=== PATIENT | male | born 1965 | race Caucasian/White ===

== ENCOUNTER 2018-02-12 21:00 | Inpatient (IN) | payer OTHER ==
[~2018-02-12] VITALS: Ht 182.9 cm; Wt 94.6 kg
[2018-02-12 21:04] VITALS: BP 170/95; PULSE 92; RESP 20; TEMP 98.1; O2SAT 98
[2018-02-12] MEDS ORDERED: SODIUM CHLORIDE 0.9% FLUSH 10 ML FLUSH IVF PRN (21:15)
[2018-02-12] MEDS ORDERED: oxyCODONE/ACETAMINOPHEN 5 MG/325 MG TAB PO ONE (21:30)
[2018-02-12 22:19] LABS: AUTOMATED NEUTROPHIL # 9.6 TH/MM3 (1.8-7.7); BASOPHIL # 0.1 TH/MM3 (0-0.2); BASOPHIL % 0.4 % (0.0-2.0); EOSINOPHIL # 0.1 TH/MM3 (0-0.4); EOSINOPHIL % 0.6 % (0.0-4.0); HEMATOCRIT 44.6 % (39.0-51.0); HEMOGLOBIN 15.4 GM/DL (13.0-17.0); LYMPH % 13.5 % (9.0-44.0); LYMPHOCYTE # 1.6 TH/MM3 (1.0-4.8); MEAN CELL VOLUME 90.2 FL (80.0-100.0); MEAN CORPUSCULAR HEMOGLOBIN 31.1 PG (27.0-34.0); MEAN CORPUSCULAR HGB CONC 34.4 % (32.0-36.0); MEAN PLATELET VOLUME 7.1 FL (7.0-11.0); MONO % 6.2 % (0.0-8.0); MONOCYTE # 0.7 TH/MM3 (0-0.9); NEUT % 79.3 % (16.0-70.0); PLATELET COUNT 282 TH/MM3 (150-450); RED BLOOD COUNT 4.95 MIL/MM3 (4.50-5.90); RED CELL DISTRIBUTION WIDTH 12.8 % (11.6-17.2); WHITE BLOOD COUNT 12.1 TH/MM3 (4.0-11.0)
[2018-02-12] MEDS ORDERED: ceFAZolin 2 GM PREMIX 50 ML ONE (22:30)
[2018-02-12] MEDS ORDERED: ONDANSETRON HCL 4 MG/2 ML VIAL IV PUSH ONE (22:30)
[2018-02-12] MEDS ORDERED: LIDOCAINE 1%/EPINEPHrine 1:100,000 SOLN 30 ML VIAL ONE (22:33)
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
[2018-02-12 22:54] LABS: ALKALINE PHOSPHATASE 67 U/L (45-117); TOTAL BILIRUBIN ADULT 0.5 MG/DL (0.2-1.0); TOTAL PROTEIN 7.3 GM/DL (6.4-8.2)
[2018-02-12 22:59] LABS: ALBUMIN 3.9 GM/DL (3.4-5.0); ALT (GPT) 27 U/L (12-78); AST (GOT) 31 U/L (15-37); BICARBONATE 25.3 MEQ/L (21.0-32.0); BLOOD UREA NITROGEN 27 MG/DL (7-18); CALCIUM 8.5 MG/DL (8.5-10.1); CHLORIDE 103 MEQ/L (98-107); CREATININE 1.26 MG/DL (0.60-1.30); GLOMERULAR FILTRATION RATE 61 ML/MIN (>89); GLUCOSE,RANDOM 110 MG/DL (74-106); SODIUM (NA) 141 MEQ/L (136-145)
[2018-02-12] MEDS ORDERED: GENTAMICIN INJ 80 MG in SODIUM CHLORIDE 0.9% INJ 100 ML IV ONE (23:00)
[2018-02-12] MEDS ORDERED: LIDOCAINE 1%/EPINEPHrine 1:100,000 SOLN 20 ML VIAL INFIL ONE (23:15)
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
[2018-02-12] MEDS ORDERED: SODIUM CHLOR 0.9% 1000 ML INJ 1,000 ML IV ONE (23:45)
[2018-02-13] MEDS ORDERED: oxyCODONE/ACETAMINOPHEN 5 MG/325 MG TAB PO PRN
[2018-02-13 00:10] LABS: BANDS 8 % (0-6); LYMPHOCYTES 10 % (9-44); MONOCYTES 7 % (0-8); POLYS (SEG NEUTROPHILS) 75 % (16-70); TOXIC GRANULATION 1+ (NORMAL)
[2018-02-13] MEDS ORDERED: IOHEXOL 350 MG/ML 10 ML VIAL (for RAD DIAG) IVCONTRAST ONE (00:19)
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
[2018-02-13 01:00] VITALS: BP 134/87; PULSE 94; RESP 18; O2SAT 98
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
[2018-02-13 04:00] VITALS: BP 142/74; PULSE 77; RESP 18; O2SAT 98
[2018-02-13] MEDS: DEXT 5%-NACL 0.45% 1000 ML INJ 1,000 ML IV SCH ×3 (04:21→19:59)
[2018-02-13] MEDS ORDERED: ENALAPRILAT 1.25 MG/ML VIAL IV PUSH PRN (05:45)
[2018-02-13] MEDS ORDERED: oxyCODONE/ACETAMINOPHEN 10 MG/325 MG TAB PO PRN (05:45)
[2018-02-13] MEDS ORDERED: MORPHINE SULFATE 4 MG/ML INJ IV PUSH PRN ×2 (05:45→13:15)
[2018-02-13] MEDS ORDERED: ONDANSETRON HCL 4 MG/2 ML VIAL IV PUSH PRN (05:45)
[2018-02-13] MEDS: FAMOTIDINE 20 MG/2 ML VIAL IV PUSH SCH ×2 (06:27→16:15)
[2018-02-13 07:20] VITALS: BP 143/85; PULSE 83; RESP 17; O2SAT 98
[2018-02-13] MEDS ORDERED: GENTAMICIN 80 MG PREMIX 100 ML IV SCH ×2 (08:00→19:00)
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
[2018-02-13] MEDS: DOCUSATE SODIUM 50 MG/SENNA 8.6 MG TAB PO SCH ×2 (09:00→19:57)
[2018-02-13] MEDS: BACITRACIN TOP OINT 15 GM TUBE TOP SCH ×2 (09:00→19:57)
[2018-02-13] MEDS ORDERED: GENTAMICIN SULFATE 80 MG/2 ML VIAL ONE (09:39)
[2018-02-13] MEDS ORDERED: VANCOMYCIN HCL 1000 MG VIAL ONE (09:39)
[2018-02-13 09:52] LABS: AUTOMATED NEUTROPHIL # 6.6 TH/MM3 (1.8-7.7); BASOPHIL % 0.3 % (0.0-2.0); EOSINOPHIL % 0.1 % (0.0-4.0); HEMATOCRIT 37.8 % (39.0-51.0); HEMOGLOBIN 13.4 GM/DL (13.0-17.0); LYMPH % 9.7 % (9.0-44.0); LYMPHOCYTE # 0.8 TH/MM3 (1.0-4.8); MEAN CORPUSCULAR HGB CONC 35.6 % (32.0-36.0); MONO % 8.4 % (0.0-8.0); MONOCYTE # 0.7 TH/MM3 (0-0.9); NEUT % 81.5 % (16.0-70.0); PLATELET COUNT 251 TH/MM3 (150-450); RED CELL DISTRIBUTION WIDTH 12.8 % (11.6-17.2); WHITE BLOOD COUNT 8.1 TH/MM3 (4.0-11.0)
[2018-02-13] MEDS ORDERED: POVIDONE IODINE 5% (ANTISEPSIS KIT) 4 APPLICATIONS EACH NARE PRN (10:15)
[2018-02-13] MEDS ORDERED: LACTATED RINGER'S 1000 ML IV PRN (10:15)
[2018-02-13] MEDS ORDERED: SODIUM CHLORID 0.9% 500 ML IV PRN (10:15)
[2018-02-13] MEDS ORDERED: METOPROLOL TARTRATE 25 MG TAB PO PRN (10:15)
[2018-02-13] MEDS ORDERED: CHLORHEXIDINE GLUCONATE 2 % 1 PACK (2 CLOTHS) TOPICAL PRN (10:15)
[2018-02-13 10:19] LABS: BICARBONATE 24.8 MEQ/L (21.0-32.0); CALCIUM 8.4 MG/DL (8.5-10.1); CREATININE 1.14 MG/DL (0.60-1.30)
[2018-02-13] MEDS ORDERED: ceFAZolin 2 GM PREMIX 50 ML ONE (10:50)
[2018-02-13] MEDS ORDERED: HYDR-3583 PO (11:39)
--- NOTE | 2018-02-13 11:41 | PD.ORT.PN ---
Subjective Subjective Remarks POD 0 s/p ORIF right distal humerus fx stable in PACU Objective Vitals Vital Signs Date Time Temp Pulse Resp B/P (MAP) Pulse Ox O2 Delivery O2 Flow Rate FiO2 02/13/18 07:20 83 17 143/85 (104) 98 Room Air 02/13/18 06:32 98 Room Air 02/13/18 04:00 77 18 142/74 (96) 98 Room Air 02/13/18 01:00 94 18 134/87 (103) 98 Room Air 02/12/18 21:04 98.1 92 20 170/95 (120) 98 I/O 02/12/18 02/12/18 02/12/18 02/13/18 02/13/18 02/13/18 07:00 15:00 23:00 07:00 15:00 23:00 Intake Total 1152 ml Balance 1152 ml Intake IV Total 1152 ml Result Diagram: 02/13/18 0844 02/13/18 0844 Imaging Last [address] 02/12/182111 Signed Impressions: Service Date/Time: January 23:40 - CONCLUSION: 1. Minimal chronic sinusitis in the inferior aspect of both maxillary antra. 2. Otherwise negative. No acute osseous injury. Phil Hurst MD Head CT 02/12/182111 Signed Impressions: Service Date/Time: January 23:40 - CONCLUSION: 1. Mild chronic sinus disease in the inferior aspect of both maxillary antra. 2. Otherwise negative with no acute intracranial process, trauma or fracture. Phil Hurst MD Chest CT 02/12/182111 Signed Impressions: Service Date/Time: January 23:54 - CONCLUSION: 1. Early emphysematous changes in the apices. 2. Otherwise negative with no acute thoracic trauma. Phil Hurst MD Cervical Spine CT 02/12/182111 Signed Impressions: Service Date/Time: January 23:40 - CONCLUSION: 1. Reversal of the normal lordotic curvature with degenerative disc disease most prominent at C5-6 and C6-7. 2. Minimal grade 1 anterolisthesis of C4 on 5 appears chronic. No acute fracture. Phil Hurst MD Abdomen/Pelvis CT 02/12/182111 Signed Impressions: Service Date/Time: January 23:47 - CONCLUSION: 1. Some facet hypertrophy rightward at C4-5. Osseous structures are otherwise intact. 2. Abdominal and pelvic viscera are all intact with no acute trauma. Phil Hurst MD Objective Remarks RUE: +long arm splint. intact. full sensation to median/ulnar nerve. good extension of wrist and fingers Assessment & Plan Assessment and Plan 1) Right Distal Humerus Fx s/p ORIF - POD 0 -NWB -maintain splint -will need 48 hrs of IV Abx -plan for DC home Friday once IV Abx are completed -f/u with Ortho back in [place] in 2 weeks Tc Galeano/[employer] Specialist PATRICK Feb 13, 2018 11:41
[2018-02-13] MEDS ORDERED: DEXAMETHASONE SOD PHOS 4 MG/ML VIAL IV ONE (12:00)
[2018-02-13] MEDS ORDERED: LIDOCAINE HCL 1% PF 5 ML SYRINGE OTHER ONE (12:00)
[2018-02-13] MEDS ORDERED: ROCURONIUM INJ 50 MG/5 ML SYRINGE IV PUSH ONE (12:00)
[2018-02-13] MEDS ORDERED: PROPOFOL 200 MG/20 ML AMP IV ONE (12:00)
[2018-02-13] MEDS ORDERED: LACTATED RINGER'S 1000 ML INJ 1,000 ML IV ONE (12:00)
[2018-02-13] MEDS ORDERED: ONDANSETRON HCL 4 MG/2 ML VIAL IV ONE (12:00)
--- NOTE | 2018-02-13 13:15 | PD.OP ---
cc: Win Calle MD Operative Report Date of Surgery: Feb 13, 2018 Preoperative Diagnosis: Comminuted open right humerus shaft fracture and intra-articular supracondylar fracture Postoperative Diagnosis: Procedure: Irrigation and debridement of open right humerus fracture, open reduction and fixation right humeral shaft fracture, open reduction internal fixation intra- articular right supracondylar humerus fracture, proximal ulna osteotomy Anesthesia: Gen. Surgeon: Win Calle Anthropometrist(s): LIAM Roche PA-C The surgical procedure was assisted by my physician household assistant. My P.A. presence was necessary throughout this case for the manipulation and positioning of the surgical extremity. My P.A. was assisting me throughout the duration of this procedure. The skill set of a physician household assistant was medically necessary to complete this procedure. During the surgical case the assembler surgical garment was working at the back table and the physician household assistant was directly assisting me. Operation and Findings: Patient was seen and evaluated preoperatively. Treatment options were discussed regarding right open distal humerus fracture including surgical and nonsurgical treatments. After detailed discussion of risk and benefits of procedure patient wishes to proceed with surgery. Risks of surgery include bleeding, infection, nonunion, malunion, painful hardware, loss of motion of shoulder and elbow, weakness and numbness of arm, ulnar nerve injury as well as medical competitions including blood clots stroke and . Patient was brought to operating room and placed on the OR table. GETA was administered by anesthesiologist. Patient was positioned in lateral decubitus position. Extremities were well-padded. Axillary roll was placed. Operative arm and shoulder were prepped with alcohol followed by Hibiclens and draped usual sterile fashion. Timeout procedure was performed. IV antibiotics were given prior to incision. A standard posterior approach was utilized. A long incision was made along the posterior aspect of the humerus and elbow. The traumatic laceration was incorporated into the incision Subcutaneous tissues was dissected with Bovie. The lateral border of the triceps was elevated off of the distal humerus. Fracture site was visualized. Next, the ulnar nerve was identified and protected throughout the procedure. The nerve was intact. The fracture was identified along the medial distal humerus. Soft tissue was removed from the fracture site. Fracture site was cleaned with curettes. At this point attention was turned towards debridement of the fracture. There was a small amount of visible contamination. A Rongour was used to debride the tip of the humerus. Curettes and rongeurs were used to debride bone. A small area of triceps muscle was excised. All visible contamination was excised. The wound was now thoroughly irrigated with 6 L of sterile saline. Next attention was turned towards open reduction and fixation of the humeral shaft. The humeral shaft fragments were carefully manipulated. The medial fragment was reduced first. Fracture keyed in anatomic alignment. Fracture tenaculum was used to hold reduction. K wires were used to hold provisional fixation. Next the lateral aspect of the humeral shaft was reduced. This fracture also keyed into excellent alignment. 2.7 cortical lag screws were used to compress fracture fragments. Next attention was turned towards the articular surface. Attempt was made to reduce surgical surface with fracture tenaculums. Fracture site was gently manipulated. I was unable to achieve satisfactory reduction. At this point attention was turned to proximal ulna osteotomy. The ulnar nerve was protected. Using an oscillating saw, a proximal ulna osteotomy was created. An osteotome was used to finish the osteotomy. The proximal ulna was now reflected to allow for exposure of the distal humerus articular surface. At this point attention was turned towards open reduction internal fixation of the articular surface. The fracture fragments were manipulated to achieve excellent reduction. At this point the fracture was reduced using fracture tenaculums. Multiplanar fluoroscopy confirmed excellent of fracture. Synthes distal humerus plates were selected. Long medial and lateral plates were selected to use band the supracondylar humerus fracture and the humeral shaft fracture. The medial plate was provisionally held the bone with K wires. 3.5 cortical screws were placed to compress plate to bone. Multiple 2.7 locking screws were placed distally. Care was taken to keep screws from penetrating the articular surface. Multiple screws were placed in each side of the fracture. All screws were predrilled and premeasured for appropriate length. Next the lateral plate was placed along the posterior lateral humerus. Plate was provisionally held to bone with K wires. 3.5 cortical screws were used to compress plate to bone. Additional 2.7 locking screws were placed distally. K wires were removed. Final fluoroscopy revealed excellent alignment of fracture with well-placed hardware. At this point she was turned towards repair of the proximal ulna osteotomy. The osteotomy was reduced. Fracture was compressed using fracture tenaculums. K wires were used to hold provisional fixation. The proximal ulna plate was selected. Plate was provisionally held to bone with K wires. 3.5 cortical screws were used to compress plate to bone. Additional locking screws were placed proximally. All screws were predrilled and premeasured for appropriate length. Fluoroscopy confirmed appropriate position of all hardware. Incision was thoroughly irrigated. Fascia was closed with #1 PDS, subcutaneous tissues closed with 3-0 PDS, and skin was closed with 3-0 nylon and cedric. Sterile dressings were applied. Needle and sponge counts were correct. Patient was placed into a sling, and then transferred to recovery room in stable condition Win Calle MD Feb 13, 2018 13:15
[2018-02-13] MEDS ORDERED: DO NOT ADM ANY ANTICOAGULANT DRUGS PRN (13:37)
[2018-02-13] MEDS ORDERED: MIDAZOLAM HCL 2 MG/2 ML VIAL ONE (13:50)
--- NOTE | 2018-02-13 14:00 | PD.ORT.PN ---
Subjective Subjective Remarks Transferred to PACU in stable condition. Clean dry dressings and sling in place Objective Vitals Vital Signs Date Time Temp Pulse Resp B/P (MAP) Pulse Ox O2 Delivery O2 Flow Rate FiO2 02/13/18 13:41 97.7 81 20 134/75 (94) 100 Nasal Cannula 2 02/13/18 07:20 83 17 143/85 (104) 98 Room Air 02/13/18 06:32 98 Room Air 02/13/18 04:00 77 18 142/74 (96) 98 Room Air 02/13/18 01:00 94 18 134/87 (103) 98 Room Air 02/12/18 21:04 98.1 92 20 170/95 (120) 98 I/O 02/12/18 02/12/18 02/12/18 02/13/18 02/13/18 02/13/18 07:00 15:00 23:00 07:00 15:00 23:00 Intake Total 1152 ml 1000 ml Output Total 200 ml Balance 1152 ml 800 ml Intake IV Total 1152 ml Other 1000 ml Output Estimated Blood Loss 200 ml Result Diagram: 02/13/18 0844 02/13/18 0844 Imaging Last [address] 02/12/182111 Signed Impressions: Service Date/Time: January 23:40 - CONCLUSION: 1. Minimal chronic sinusitis in the inferior aspect of both maxillary antra. 2. Otherwise negative. No acute osseous injury. Phil Hurst MD Head CT 02/12/182111 Signed Impressions: Service Date/Time: January 23:40 - CONCLUSION: 1. Mild chronic sinus disease in the inferior aspect of both maxillary antra. 2. Otherwise negative with no acute intracranial process, trauma or fracture. Phil Hurst MD Chest CT 02/12/182111 Signed Impressions: Service Date/Time: January 23:54 - CONCLUSION: 1. Early emphysematous changes in the apices. 2. Otherwise negative with no acute thoracic trauma. Phil Hurst MD Cervical Spine CT 02/12/182111 Signed Impressions: Service Date/Time: January 23:40 - CONCLUSION: 1. Reversal of the normal lordotic curvature with degenerative disc disease most prominent at C5-6 and C6-7. 2. Minimal grade 1 anterolisthesis of C4 on 5 appears chronic. No acute fracture. Phil Hurst MD Abdomen/Pelvis CT 02/12/182111 Signed Impressions: Service Date/Time: January 23:47 - CONCLUSION: 1. Some facet hypertrophy rightward at C4-5. Osseous structures are otherwise intact. 2. Abdominal and pelvic viscera are all intact with no acute trauma. Phil Hurst MD Objective Remarks Right upper extremity: Clean dry dressings intact. Sling in place. Distally good capillary refills and distal pulses Assessment & Plan Assessment and Plan 1) Right Distal Humerus Fx s/p ORIF - POD 0 -NWB -will need 48 hrs of IV Abx -plan for DC home Friday once IV Abx are completed -f/u with Ortho back in [place] in 2 weeks Thor Caceres Jr. Feb 13, 2018 14:00
[2018-02-13] MEDS ORDERED: *MEPERIDINE 25 MG INJ VIAL PERIprocedural Use ONLY ONE (14:04)
[2018-02-13] MEDS ORDERED: diphenhydrAMINE HCL 25 MG CAP PO PRN (14:30)
--- NOTE | 2018-02-13 14:35 | RADRPT ---
EXAM DATE/TIME: 02/13/2018 12:33 [facility] COMPARISON: FLUOROSCOPY PORTABLE UP TO 1HR, February 13, 2018, 0:00. INDICATIONS : Right elbow/ distal humerus open reduction internal fixation. MEDICAL HISTORY : None. SURGICAL HISTORY : None. ENCOUNTER: Initial ACUITY: 1 day PAIN SCORE: Non-responsive. LOCATION: Right elbow FINDINGS: Intraoperative examination demonstrates plating of the patient's comminuted distal humeral fracture a nd olecranon fracture. The alignment post ORIF is excellent. CONCLUSION: 1. Excellent alignment of the patient's distal humeral fracture and olecranon fracture post plating. Cristobal Miguel MD on February 13, 2018 at 14:32 Board Certified Radiologist. This report was verified electronically.
[2018-02-13] MEDS ORDERED: ceFAZolin 2 GM PREMIX 50 ML IV SCH (15:00)
--- NOTE | 2018-02-13 15:37 | OTSOAPIP ---
TIME SESSION COMPLETED: PM TREATMENT TIME: 0 MINS. ELECTRONIC MEDICAL RECORD REVIEWED. INTERDISCIPLINARY COMMUNICATION: PATIENT WAS NOT AVAILABLE DUE TO HAVING SURGICAL PROCEDURE FOR REPAIR OF RIGHT HUMERUS FRACTURE PLAN: WILL SEE PATIENT NEXT TREATMENT DAY Therapist: TAISHA MAHAJAN/Collin Signature on file
[2018-02-13] MEDS: ACETAMINOPHEN/HYDROcodone 325 MG/10 MG TAB PO PRN ×3 (15:52→23:36)
[2018-02-13] MEDS ORDERED: POTASSIUM CHLORIDE 25 MEQ EFFERVESCENT TAB PO ONE (16:15)
[2018-02-13] MEDS: CALCIUM/VITAMIN D 250 MG/125 U TAB PO SCH (17:02)
[2018-02-13] MEDS: ceFAZolin 2 GM PREMIX 50 ML IV SCH (17:02)
[2018-02-13] MEDS: GENTAMICIN INJ 80 MG in SODIUM CHLORIDE 0.9% INJ 100 ML IV SCH (18:29)
[2018-02-13 20:00] VITALS: BP 128/88; PULSE 91; RESP 18; TEMP 99.6; O2SAT 97
[2018-02-14] VITALS (7 sets, daily range): BP systolic 136–144; BP diastolic 81–93; PULSE 80–92; RESP 16–18; TEMP 97.9–100.7; O2SAT 94–98
[2018-02-14] MEDS: GENTAMICIN INJ 80 MG in SODIUM CHLORIDE 0.9% INJ 100 ML IV SCH ×3 (02:32→18:12)
[2018-02-14] MEDS: ceFAZolin 2 GM PREMIX 50 ML IV SCH (03:09)
[2018-02-14] MEDS: ACETAMINOPHEN/HYDROcodone 325 MG/10 MG TAB PO PRN ×7 (03:10→21:06)
[2018-02-14] MEDS: FAMOTIDINE 20 MG/2 ML VIAL IV PUSH SCH (05:51)
[2018-02-14 06:54] LABS: HEMATOCRIT 34.6 % (39.0-51.0)
[2018-02-14 07:09] LABS: BICARBONATE 26.8 MEQ/L (21.0-32.0); CREATININE 1.1 MG/DL (0.60-1.30)
[2018-02-14] MEDS ORDERED: ERGOCALCIFEROL (VIT D2) 50,000 UNIT CAP PO SCH (09:00)
[2018-02-14] MEDS: DOCUSATE SODIUM 50 MG/SENNA 8.6 MG TAB PO SCH ×2 (09:12→21:05)
[2018-02-14] MEDS: CALCIUM/VITAMIN D 250 MG/125 U TAB PO SCH ×3 (09:12→18:11)
[2018-02-14] MEDS: CHOLECALCIFEROL (VIT D3) 1000 UNIT TAB PO SCH (09:12)
[2018-02-14] MEDS: BACITRACIN TOP OINT 15 GM TUBE TOP SCH (09:13)
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
[2018-02-14] MEDS: DEXT 5%-NACL 0.45% 1000 ML INJ 1,000 ML IV SCH (11:16)
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
[2018-02-14] MEDS: METHOCARBAMOL 500 MG TAB PO SCH ×2 (16:18→21:05)
[2018-02-15] VITALS: BP 124/79; PULSE 89; RESP 18; TEMP 99.7; O2SAT 97
[2018-02-15] MEDS: ACETAMINOPHEN/HYDROcodone 325 MG/10 MG TAB PO PRN ×6 (00:20→17:18)
[2018-02-15] MEDS ORDERED: ceFAZolin 2 GM PREMIX 50 ML IV SCH (02:15)
[2018-02-15] MEDS: GENTAMICIN INJ 80 MG in SODIUM CHLORIDE 0.9% INJ 100 ML IV SCH ×2 (02:22→10:21)
[2018-02-15] MEDS: BACITRACIN TOP OINT 15 GM TUBE TOP SCH ×2 (03:31→09:00)
[2018-02-15] MEDS: METHOCARBAMOL 500 MG TAB PO SCH ×2 (06:24→13:44)
[2018-02-15 08:00] VITALS: BP 142/95; PULSE 89; RESP 16; TEMP 97.1; O2SAT 98
--- NOTE | 2018-02-15 08:42 | PD.ORT.PN ---
Subjective Subjective Remarks pt doing better, less pain involving arm would like to be discharged home today Objective Vitals Vital Signs Date Time Temp Pulse Resp B/P (MAP) Pulse Ox O2 Delivery O2 Flow Rate FiO2 02/15/18 00:00 99.7 89 18 124/79 (94) 97 02/14/18 20:00 100.4 91 18 139/88 (105) 97 02/14/18 16:00 99.0 89 16 140/81 (100) 96 02/14/18 12:00 97.9 80 16 142/91 (108) 98 02/14/18 11:22 94 Nasal Cannula 2.00 I/O 02/14/18 02/14/18 02/14/18 02/15/18 02/15/18 02/15/18 07:00 15:00 23:00 07:00 15:00 23:00 Intake Total 240 ml 202 ml 600 ml 480 ml Balance 240 ml 202 ml 600 ml 480 ml Intake Oral 240 ml 600 ml 480 ml IV Total 202 ml # Voids 2 3 2 # Bowel Movements 0 0 Result Diagram: 02/14/18 0552 02/14/18 0552 Imaging Last [address] 02/12/182111 Signed Impressions: Service Date/Time: January 23:40 - CONCLUSION: 1. Minimal chronic sinusitis in the inferior aspect of both maxillary antra. 2. Otherwise negative. No acute osseous injury. Phil Hurst MD Head CT 02/12/182111 Signed Impressions: Service Date/Time: January 23:40 - CONCLUSION: 1. Mild chronic sinus disease in the inferior aspect of both maxillary antra. 2. Otherwise negative with no acute intracranial process, trauma or fracture. Phil Hurst MD Chest CT 02/12/182111 Signed Impressions: Service Date/Time: January 23:54 - CONCLUSION: 1. Early emphysematous changes in the apices. 2. Otherwise negative with no acute thoracic trauma. Phil Hurst MD Cervical Spine CT 02/12/182111 Signed Impressions: Service Date/Time: January 23:40 - CONCLUSION: 1. Reversal of the normal lordotic curvature with degenerative disc disease most prominent at C5-6 and C6-7. 2. Minimal grade 1 anterolisthesis of C4 on 5 appears chronic. No acute fracture. Phil Hurst MD Abdomen/Pelvis CT 02/12/182111 Signed Impressions: Service Date/Time: January 23:47 - CONCLUSION: 1. Some facet hypertrophy rightward at C4-5. Osseous structures are otherwise intact. 2. Abdominal and pelvic viscera are all intact with no acute trauma. Phil Hurst MD Objective Remarks also seen and examined by Dr. Leonardo Lozano Right upper extremity: Clean dry dressings intact. Sling in place. Distally good capillary refills and distal pulses Assessment & Plan Assessment and Plan 1) Right Distal Humerus Fx s/p ORIF - POD #2 -NWB RUE -plan for discharge home today after antibiotics completed -advised to leave dressings in place until he follows up with orthopedic -f/u with Ortho back in [place] where patient lives in 2 weeks Agnes Conner Feb 15, 2018 08:42
[2018-02-15] MEDS: DOCUSATE SODIUM 50 MG/SENNA 8.6 MG TAB PO SCH (08:55)
[2018-02-15] MEDS: CALCIUM/VITAMIN D 250 MG/125 U TAB PO SCH ×2 (08:55→13:45)
[2018-02-15] MEDS: CHOLECALCIFEROL (VIT D3) 1000 UNIT TAB PO SCH (10:20)
[2018-02-15 12:00] VITALS: BP 153/88; PULSE 86; RESP 16; TEMP 99; O2SAT 100
[2018-02-15] MEDS ORDERED: PERI PO (12:28)
[2018-02-15] MEDS ORDERED: METH500T3 PO (12:34)
[2018-02-15] MEDS ORDERED: ALPRAZolam 0.5 MG TAB PO ONE (15:00)
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
== END 2018-02-15 18:13 | disposition home or self-care (01) | DRG 494 ==
LOC: NEPE 21:00 → NEDA 23:50 → NEDH 02-13 03:50 → N06B 02-13 15:35
PROVIDERS: ADMIT Surgery; ATTEND Surgery
PROC: 0PSF04Z Reposition Right Humeral Shaft with Internal Fixation Device, Open Approach (ICD-10-PCS; 2018-02-13)
PROC: 0PBK0ZZ Excision of Right Ulna, Open Approach (ICD-10-PCS; 2018-02-13)
PROC: 0PSF04Z Reposition Right Humeral Shaft with Internal Fixation Device, Open Approach (ICD-10-PCS; principal; 2018-02-13 10:22)
DX: S42.411B Displaced simple supracondylar fracture without intercondylar fracture of right humerus, initial encounter for open fracture (principal); S42.491B Other displaced fracture of lower end of right humerus, initial encounter for open fracture; K59.00 Constipation, unspecified; V28.4XXA Motorcycle driver injured in noncollision transport accident in traffic accident, initial encounter; Y92.488 Other paved roadways as the place of occurrence of the external cause; Y93.89 Activity, other specified; S42.301B Unspecified fracture of shaft of humerus, right arm, initial encounter for open fracture; R07.9 Chest pain, unspecified
CPT/HCPCS: 12002; 70450; 70486; 71260; 72125; 73030; 73060; 73070; 73090; 73200; 74177; 76000; 80048; 80053; 85007; 85014; 85018; 85025; 85027; 96365; 96368; 96375; C1713; J0690; J1100; J1580; J2175; J2250; J2405; J3010; J3370; J7030; J7120; Q9967